=== PATIENT | female | born 1985 | race Hispanic/Latino ===

== ENCOUNTER 2023-09-19 16:09 | Day surgery (SDC) | payer BC ==
[2023-09-19 18:08] VITALS: BMI 42.4
== END 2023-09-19 18:00 | disposition home or self-care (01) ==
LOC: CSHLD/OP 16:09
PROVIDERS: ATTEND Student in an Organized Health Care Education/Training Program
DX: O35.8XX0 Maternal care for other (suspected) fetal abnormality and damage, not applicable or unspecified (principal); O47.1 False labor at or after 37 completed weeks of gestation; Z79.899 Other long term (current) drug therapy; Z3A.37 37 weeks gestation of pregnancy
CPT/HCPCS: 99282

== ENCOUNTER 2023-10-02 02:35 | Inpatient (IN) | payer BC ==
[2023-10-02] MEDS ORDERED: fentaNYL/Ropivacaine Epidural 100 ML ONE (03:11)
[2023-10-02] MEDS ORDERED: Methylergonovine 0.2 MG/ML VIAL IM PRN (03:35)
[2023-10-02] MEDS ORDERED: Ondansetron PF 4 MG/2 ML Vial IVP PRN ×3 (03:35→08:57)
[2023-10-02] MEDS ORDERED: Carboprost 250 MCG/ML AMP IM PRN (03:35)
[2023-10-02] MEDS ORDERED: Ibuprofen 800 MG TAB PO PRN (03:35)
[2023-10-02] MEDS ORDERED: Misoprostol 200 MCG TAB PR PRN (03:35)
[2023-10-02] MEDS ORDERED: hydrALAZINE 20 MG/ML VIAL SLOW IVP PRN ×2 (03:35→08:57)
[2023-10-02] MEDS ORDERED: Diphenoxylate HCl/Atropine Tablet PO PRN (03:35)
[2023-10-02] MEDS ORDERED: Promethazine HCl 25 MG/ML VIAL IM PRN ×3 (03:35→08:57)
[2023-10-02] MEDS ORDERED: HYDROcodone/Acetaminophen 5/325 mg Tablet PO PRN ×3 (03:35→08:57)
[2023-10-02] MEDS ORDERED: Lidocaine 1% (PF) 30 ML VIAL SC PRN (03:35)
[2023-10-02] MEDS ORDERED: Acetaminophen 500 MG TAB PO PRN (03:35)
[2023-10-02] MEDS ORDERED: fentaNYL 50 mcg/mL 1 mL Vial SLOW IVP PRN (03:35)
[2023-10-02] MEDS ORDERED: Lactated Ringer's 1,000 ML IV SCH (03:45)
[2023-10-02] MEDS ORDERED: Oxytocin 30 units/NS 500 ML 500 ML IV SCH ×2 (03:45)
[2023-10-02 03:49] VITALS: BMI 43.0
[2023-10-02 03:54] LABS: Hematocrit 35.8 % (34.9-44.5); Mean Corpuscular HGB CONC 33.5 g/dL (32.0-36.0); Mean Corpuscular Hemoglobin 27.1 pg (27.0-33.0); Mean Platelet Volume 10.9 fl (7.4-10.4); Platelet Count 181 10x3/uL (150-450); RBC Distribution Width 16.1 % (11.5-14.5); Red Blood Cell (RBC) Count 4.42 10x6/uL (3.90-5.03)
[2023-10-02 04:20] LABS: ALT (SGPT) 13 U/L (8-55); AST (SGOT) 19 U/L (5-34); Albumin 3.3 g/dL (3.5-5.0); Alkaline Phosphatase 184 U/L (40-110); Anion Gap 17 mmol/L (10-20); BUN (Urea Nitrogen) 9 mg/dL (7.0-18.7); Bilirubin, Total 0.6 mg/dL (0.2-1.2); Calc. Creatinine Clearance 243 mL/min (70-130); Calcium 8.5 mg/dL (7.8-10.44); Carbon Dioxide 19 mmol/L (22-29); Chloride 106 mmol/L (98-107); Estimated GFR 121; Globulin 2.5 g/dL (2.4-3.5); Glucose 108 mg/dL (70-105); Potassium 3.8 mmol/L (3.5-5.1); Protein, Total 5.8 g/dL (6.0-8.3); Sodium 138 mmol/L (136-145)
[2023-10-02 04:25] LABS: HBSAg Index 0.15 S/CO (0-0.99); Hep B Surf Ag - L&D Non-Reactive S/CO (NonReactive); Syphilis Antibody Nonreactive (Nonreactive); Syphilis Antibody Index 0.04 S/CO (<1.00 Non-Reactive)
[2023-10-02] MEDS ORDERED: Moisturizing Cream (Eucerin) 113 GM JAR TOP PRN (04:33)
[2023-10-02] MEDS ORDERED: ePHEDrine Sulfate 50 MG/10 ML VIAL SLOW IVP PRN (04:33)
[2023-10-02] MEDS ORDERED: diphenhydrAMINE 50 MG/ML VIAL IVP PRN (04:33)
[2023-10-02] MEDS ORDERED: Acetaminophen 325 MG TAB PO PRN (04:33)
[2023-10-02] MEDS ORDERED: Lactated Ringer's 500 ML IV PRN (04:33)
[2023-10-02] MEDS ORDERED: Naloxone HCl 0.4 mg/ml Vial IVP PRN ×2 (04:33)
[2023-10-02 04:39] LABS: HIV (1/2) Antibody/Antigen Non-Reactive (NonReactive); HIV 1/2 INDEX 0.15 S/CO (<1.00)
[2023-10-02] MEDS ORDERED: Communication Order-Pharmacy FS SCH (04:45)
[2023-10-02] MEDS ORDERED: fentaNYL 2 mcg/Ropivacaine 0.2% Epidural 100 ML CADD EPIDURAL SCH (04:45)
[2023-10-02] MEDS ORDERED: Bisacodyl 10 MG SUPP PR PRN (08:57)
[2023-10-02] MEDS ORDERED: diphenhydrAMINE 25 MG CAP PO PRN (08:57)
[2023-10-02] MEDS ORDERED: Benzocaine-Menthol 82.5 ML CAN TOP PRN (08:57)
[2023-10-02] MEDS ORDERED: Lanolin Ointment 7 GM TUBE TOP PRN (08:57)
[2023-10-02] MEDS ORDERED: Preparation H Ointment 28 GM TUBE PR PRN (08:57)
[2023-10-02] MEDS ORDERED: Milk Of Magnesia 30 ML UDCUP PO PRN (08:57)
[2023-10-02] MEDS ORDERED: Boostrix 0.5 ML (Tdap) VIAL (>/=7 yrs of age) IM ONE (10:00)
[2023-10-02] MEDS: Docusate 100 MG CAP PO SCH ×2 (10:28→21:42)
[2023-10-02] MEDS: Prenatal Vitamin 1 TAB PO SCH (10:28)
[2023-10-02] MEDS ORDERED: ePHEDrine Sulfate 50 MG/10 ML VIAL ONE (12:00)
[2023-10-02] MEDS ORDERED: Bupivacaine 0.25% HCL 30 ML VIAL ONE (12:00)
[2023-10-02] MEDS: Ibuprofen 800 MG TAB PO SCH ×2 (14:06→21:42)
[2023-10-02] MEDS: Ferrous Sulfate 325 MG TAB PO SCH (18:22)
[2023-10-03] MEDS: Ibuprofen 800 MG TAB PO SCH ×2 (05:15→13:47)
[2023-10-03 08:07] VITALS: BP 126/59; TEMP 97.9
[2023-10-03] MEDS: Prenatal Vitamin 1 TAB PO SCH (08:48)
[2023-10-03] MEDS: Docusate 100 MG CAP PO SCH (08:48)
[2023-10-03] MEDS: Ferrous Sulfate 325 MG TAB PO SCH (08:50)
== END 2023-10-03 14:10 | disposition home or self-care (01) | DRG 806 ==
LOC: CSHLD/OP 02:35 → CSHLD 03:01 → CSHPP 10:15
PROVIDERS: ADMIT Student in an Organized Health Care Education/Training Program; ATTEND Student in an Organized Health Care Education/Training Program
PROC: 10E0XZZ Delivery of Products of Conception, External Approach (ICD-10-PCS; principal; 2023-10-02)
PROC: 3E0334Z Introduction of Serum, Toxoid and Vaccine into Peripheral Vein, Percutaneous Approach (ICD-10-PCS; 2023-10-02)
PROC: 3E033XZ Introduction of Vasopressor into Peripheral Vein, Percutaneous Approach (ICD-10-PCS; 2023-10-02)
DX: O77.0 Labor and delivery complicated by meconium in amniotic fluid (principal); N13.30 Unspecified hydronephrosis; Z37.0 Single live birth; O99.892 Other specified diseases and conditions complicating childbirth; Z3A.39 39 weeks gestation of pregnancy; O26.893 Other specified pregnancy related conditions, third trimester; Z67.41 Type O blood, Rh negative
CPT/HCPCS: 36415; 80053; 85027; 85461; 86780; 86850; 86900; 86901; 87340; 87389; 90384; 96372; S0020